=== PATIENT | male | born 1985 | race American Indian/Alaskan Native ===

== ENCOUNTER 2018-01-13 22:58 | Emergency (ER) | payer MEDICAID, OTHER ==
[2018-01-13] MEDS ORDERED: Ondansetron 4 MG/2 ML SDV IV ONE (23:15)
[2018-01-13] MEDS ORDERED: Sodium Chloride 0.9% 1,000 ML IV ONE (23:15)
--- NOTE | 2018-01-13 23:22 | EDM.PDOC ---
ED HPI GENERAL MEDICAL PROBLEM - General Chief Complaint: Abdominal Pain Stated Complaint: SEVERE ABD PAIN [id number] Time Seen by Provider: 01/13/18 23:22 Source of Information: Reports: Patient History Limitations: Reports: No Limitations - History of Present Illness INITIAL COMMENTS - FREE TEXT/NARRATIVE: C/o onset diarrhea and vomiting after eating pizza last jayne. Vomited 7-8 times since 8 am this am, Pain lower abdomen around navel. Increased pain if legs extended. No prior abdominal surgeries. Remote hx of hepatitis at age 5. Location: Reports: Abdomen Quality: Reports: Stabbing, Throbbing Severity: Moderate Bilateral Lower Epigastric Pain Score (Numeric/FACES): 9 - Related Data Allergies Allergy/AdvReac Type Severity Reaction Status Date / Time No Known Allergies Allergy Verified 02/22/16 20:36 Home Meds: Home Meds . [No Known Home Meds] 02/12/14 [History] Past Medical History - Past Health History Medical/Surgical History: Denies Medical/Surgical History - Past Surgical History Dermatological Surgical History: Reports: Skin Graft Social & Family History - Family History Family Medical History: Noncontributory - Tobacco Use Smoking Status *Q: Current Every Day Smoker Years of Tobacco use: 14 Packs/Tins Daily: 1 Second Hand Smoke Exposure: Yes - Caffeine Use Caffeine Use: Reports: Coffee - Recreational Drug Use Recreational Drug Use: No ED ROS GENERAL - Review of Systems Review Of Systems: ROS reveals no pertinent complaints other than HPI. ED EXAM, GI/ABD - Physical Exam Exam: See Below Exam Limited By: No Limitations General Appearance: Alert, Moderate Distress Eyes: Bilateral: EOMI Ears: Normal External Exam Nose: Normal Inspection Throat/Mouth: Normal Inspection Head: Atraumatic, Normocephalic Neck: Normal Inspection, Full Range of Motion Respiratory/Chest: No Respiratory Distress, Lungs Clear, Normal Breath Sounds Cardiovascular: Normal Peripheral Pulses, Regular Rate, Rhythm GI/Abdominal Exam: Guarding, Tender, Abnormal Bowel Sounds (hypoactive) Extremities: Normal Range of Motion Neurological: Alert, Oriented, Normal Cognition Psychiatric: Normal Affect Skin Exam: Warm, Dry, Intact, Tattoo(s) Course - Vital Signs Last Recorded V/S: Last Vital Signs Temp 99.0 F 01/13/18 23:02 Pulse 89 01/14/18 01:00 Resp 22 H 01/14/18 01:00 BP 119/56 L 01/14/18 01:00 Pulse Ox 98 01/14/18 01:00 - Orders/Labs/Meds Orders: Active Orders 24 hr Category Date Time Status Abdomen Pelvis w Cont [CT] Urgent Exams 01/13/18 23:24 Taken UA W/MICROSCOPIC [URIN] Stat Lab 01/14/18 01:09 Ordered Labs: Laboratory Tests 01/13/18 01/13/18 01/14/18 Range/Units 23:20 23:20 01:09 WBC 10.1 H (5.0-10.0) 10^3/uL RBC 5.61 (4.6-6.2) 10^6/uL Hgb 15.0 (14.0-18.0) g/dL Hct 43.9 (40.0-54.0) % MCV 78.3 L D (80-100) fL MCH 26.7 L (27.0-34.0) pg MCHC 34.2 (33.0-35.0) g/dL Plt Count 243 (150-450) 10^3/uL Neut % (Auto) 77.1 H (42.2-75.2) % Lymph % (Auto) 12.3 L (20.5-50.1) % [place] % (Auto) 10.1 H (2-8) % Eos % (Auto) 0.2 L (1.0-3.0) % Baso % (Auto) 0.3 (0.0-1.0) % Sodium 137 (135-145) mmol/L Potassium 3.2 L (3.6-5.0) mmol/L Chloride 104 (101-111) mmol/L Carbon Dioxide 23.0 (21.0-31.0) mmol/L Anion Gap 13.2 BUN 12 (7-18) mg/dL Creatinine 1.0 (0.6-1.3) mg/dL Est Cr Clr Drug Dosing 99.15 mL/min Estimated GFR (MDRD) > 60 BUN/Creatinine Ratio 12.00 Glucose 104 (74-105) mg/dL Calcium 9.2 (8.4-10.2) mg/dl Total Bilirubin 0.9 (0.2-1.0) mg/dL AST 27 (10-42) IU/L ALT 36 (10-60) IU/L Alkaline Phosphatase 121 (42-121) IU/L Total Protein 8.1 (6.7-8.2) g/dl Albumin 4.5 (3.2-5.5) g/dl Globulin 3.6 Albumin/Globulin Ratio 1.25 Amylase 40 (28-100) U/L Lipase 22 (22-51) U/L Urine Color Yellow (YELLOW) Urine Appearance Clear (CLEAR) Urine pH 7.5 (5.0-9.0) Ur Specific [place] 1.015 (1.005-1.030) Urine Protein Negative (NEGATIVE) Urine Glucose (UA) Negative (NEGATIVE) Urine Ketones Negative (NEGATIVE) Urine Occult Blood Negative (NEGATIVE) Urine Nitrite Negative (NEGATIVE) Urine Bilirubin Negative (NEGATIVE) Urine Urobilinogen 0.2 (0.2-1.0) mg/dL Ur Leukocyte Esterase Negative (NEGATIVE) Urine RBC Not seen /HPF Urine WBC 0-5 (0-5/HPF) /HPF Ur Epithelial Cells Few /HPF Urine Bacteria Few (0-FEW/HPF) /HPF Meds: Medications Discontinued Medications Generic Name Dose Route Start Last Admin Trade Name Freq PRN Reason Stop Dose Admin Famotidine 20 mg 01/14/18 00:03 01/14/18 00:17 Pepcid IVPUSH 01/14/18 00:04 20 mg ONETIME ONE Administration Fentanyl 25 mcg 01/13/18 23:24 01/13/18 23:32 Sublimaze IVPUSH 01/13/18 23:25 25 mcg ONETIME ONE Administration Fentanyl 25 mcg 01/14/18 00:01 01/14/18 00:10 Sublimaze IVPUSH 01/14/18 00:02 25 mcg ONETIME ONE Administration Fentanyl 50 mcg 01/14/18 00:51 01/14/18 01:12 Sublimaze IVPUSH 01/14/18 00:52 50 mcg ONETIME ONE Administration Sodium Chloride 1,000 mls @ 999 mls/hr 01/13/18 23:15 01/13/18 23:30 Normal Saline IV 01/14/18 00:15 999 mls/hr .BOLUS ONE Administration Potassium Chloride 10 meq/ 100 mls @ 100 mls/hr 01/14/18 00:48 01/14/18 01:01 Premix IV 01/14/18 01:47 100 mls/hr ONETIME ONE Administration Sodium Chloride 1,000 mls @ 150 mls/hr 01/14/18 00:48 01/14/18 00:57 Normal Saline IV 01/14/18 07:27 150 mls/hr .BOLUS ONE Administration Iopamidol 100 ml 01/13/18 23:24 01/13/18 23:35 Isovue-300 (61%) IVPUSH 01/13/18 23:25 100 ml ONETIME ONE Administration Ondansetron HCl 4 mg 01/13/18 23:15 01/13/18 23:31 Zofran IV 01/13/18 23:16 4 mg ONETIME ONE Administration - Radiology Interpretation Free Text/Narrative:: CT abdomen: Acute appendicitis - Re-Assessments/Exams Free Text/Narrative Re-Assessment/Exam: 01/14/18 00:33 TC [facility]: Dr Dillon accepting of patient Tx via [facility] 01/14/18 00:35 Departure - Departure Time of Disposition: 20:00 Disposition: DC/Tfer to Acute Hospital 02 Condition: Good, Undetermined Clinical Impression: Appendicitis Qualifiers: Appendicitis type: acute appendicitis Acute appendicitis type: unspecified acute appendicitis type Qualified Code(s): K35.80 - Unspecified acute appendicitis - Discharge Information Forms: ED Department Discharge - My Orders Last 24 Hours: My Active Orders 01/13/18 23:24 Abdomen Pelvis w Cont [CT] Urgent 01/14/18 01:09 UA W/MICROSCOPIC [URIN] Stat - Assessment/Plan Last 24 Hours: My Active Orders 01/13/18 23:24 Abdomen Pelvis w Cont [CT] Urgent 01/14/18 01:09 UA W/MICROSCOPIC [URIN] Stat
[2018-01-13] MEDS ORDERED: Iopamidol 612 MG/ML 100 ML Bottle IVPUSH ONE (23:24)
[2018-01-13] MEDS ORDERED: fentaNYL 100 MCG/2 ML SDV IVPUSH ONE (23:24)
[2018-01-13 23:44] LABS: CHLORIDE,CL 104 mmol/L (101-111); SODIUM,NA 137 mmol/L (135-145)
[2018-01-14] MEDS ORDERED: fentaNYL 100 MCG/2 ML SDV IVPUSH ONE ×2 (00:01→00:51)
[2018-01-14] MEDS ORDERED: Potassium Chloride 10 MEQ in Premix Bag 1 BAG IV ONE (00:48)
[2018-01-14] MEDS ORDERED: Sodium Chloride 0.9% 1,000 ML IV ONE (00:48)
[2018-01-14 01:11] VITALS: BP 119/56
== END 2018-01-14 01:21 ==
LOC: DL.ED 22:58
DX: K35.80 Unspecified acute appendicitis (principal); F17.210 Nicotine dependence, cigarettes, uncomplicated
CPT/HCPCS: 36415; 74177; 80053; 81001; 82150; 83690; 85025; 96361; 96365; 96375; 96376; 99285; J2405; J3010; J3480; J3490; J7030; Q9967

== ENCOUNTER 2021-12-13 11:30 | Emergency (ER) | payer MEDICAID, OTHER ==
[2021-12-13 12:19] VITALS: BP 109/79; PULSE 82
[2021-12-13 12:58] LABS: CORONAVIRUS COVID-19 NAA NEGATIVE (NEGATIVE); RESPIRATORY SYNCYTIAL VIR NAA NEGATIVE (NEGATIVE)
[2021-12-13] MEDS ORDERED: Cephalexin 500 MG Cap PO ONE (13:18)
[2021-12-13] MEDS ORDERED: Loratadine 10 MG Tab PO ONE (13:20)
== END 2021-12-13 13:32 | disposition home or self-care (01) ==
LOC: DL.ED 11:30
DX: S90.821A Blister (nonthermal), right foot, initial encounter (principal); L08.9 Local infection of the skin and subcutaneous tissue, unspecified; J06.9 Acute upper respiratory infection, unspecified; Z72.0 Tobacco use; Z79.899 Other long term (current) drug therapy
CPT/HCPCS: 0241U; 87081; 87430; 99283; A9270-GY

== ENCOUNTER 2024-02-02 21:43 | Emergency (ER) | payer SELFPAY ==
[2024-02-02 22:31] VITALS: BP 143/97; PULSE 104
== END 2024-02-03 00:45 | disposition home or self-care (01) ==
LOC: DL.ED 21:43
DX: S61.210A Laceration without foreign body of right index finger without damage to nail, initial encounter (principal); W26.8XXA Contact with other sharp object(s), not elsewhere classified, initial encounter
CPT/HCPCS: 73140-F6; 99282; 99283